=== PATIENT | female | born 1985 | race African-American/Black ===

== ENCOUNTER 2016-12-11 16:16 | Inpatient (IN) ==
[2016-12-11] MEDS ORDERED: ONDANSETRON 4 MG/2 ML INJECTION IV ONE (17:47)
[2016-12-11] MEDS: NS 1,000 ML IV SCH ×2 (18:10→19:36)
[2016-12-11] MEDS: FentaNYL 100 MCG/2 ML INJECTION IVP PRN ×2 (18:11→20:57)
[2016-12-11] MEDS: PANTOPRAZOLE 40 MG INJECTION IVP SCH ×2 (18:28→20:59)
[2016-12-11] MEDS: HYOSCYAMINE 0.125 MG/ML PO SCH ×2 (18:29→22:53)
[2016-12-11] MEDS ORDERED: POTASSIUM CHLORIDE INJ 20 MEQ in NS 1,000 ML IV SCH (20:00)
[2016-12-11] MEDS: NS with KCL 20 mEq 1,000 ML IV SCH (20:55)
[2016-12-12] MEDS: FentaNYL 100 MCG/2 ML INJECTION IVP PRN ×8 (01:25→23:47)
[2016-12-12] MEDS: ONDANSETRON 4 MG/2 ML INJECTION IVP PRN ×2 (01:33→13:30)
[2016-12-12] MEDS: NS with KCL 20 mEq 1,000 ML IV SCH ×3 (04:57→22:15)
--- NOTE | 2016-12-12 08:27 | XRay Report ---
Indication: abd pain PROCEDURE: PA view of the chest with supine and upright AP views of the abdomen Encounter: Initial Comparison: None FINDINGS: The lungs are clear. There is no abnormal airspace opacity, pleural effusion or pneumothorax identified. The heart size, pulmonary vasculature and mediastinum are within normal limits. There is no free air on the upright view. The bowel gas pattern is nonobstructive and nonspecific. A few nondifferential air-fluid levels in the small bowel. Gas is seen in nondilated small and large bowel to the level of the sigmoid. Moderate stool is seen throughout the colon. The bony structures are grossly unremarkable. Surgical clips in the left abdomen. IMPRESSION: 1. No acute cardiopulmonary abnormality. 2. No evidence of acute obstruction or free air. Possible gastroenteritis. There is a preliminary report by [facility]. .
[2016-12-12] MEDS: PANTOPRAZOLE 40 MG INJECTION IVP SCH ×2 (08:59→20:37)
[2016-12-12] MEDS: HYOSCYAMINE 0.125 MG/ML PO SCH ×4 (09:03→20:44)
[2016-12-12 11:48] VITALS: BMI 35.3
[2016-12-12] MEDS: LEVOFLOXACIN PB 500 MG/100 ML BAG IV SCH (12:00)
[2016-12-12] MEDS ORDERED: NS IV ONE (13:19)
[2016-12-12] MEDS ORDERED: IRON DEXTRAN IV ONE (13:19)
--- NOTE | 2016-12-12 14:20 | Pharmacy Consult ---
Pharmacy Consult-[facility] - Laboratory Information IV IRON CONSULT: Dx: Iron Deficiency Anemia: Will give TDI (Total Dose Infusion) over 4 hours. Actual body weight = 84 kg Hgb Level = 8.3 g/dL Calculated Lean Dosing Weight = 50 kg Total dose needed: 1,400 mg (28 mL) Will give test dose of 25mg IV push over 30 seconds. Watch VS q 15 minutes x 1 hr. (watching for anaphylaxis, respiratory distress, hives.) If no reaction will give full dose in NS 500ml TRA 125ml/hr. Watch VS q 1 hr during infusion. Thank you for the Iron Dextran Consult, Saroj Adorno, Pharmacist.
[2016-12-12] MEDS ORDERED: IRON DEXTRAN COMPLEX 100mg/2ml INJECTION IV ONE (14:30)
[2016-12-12] MEDS ORDERED: IRON DEXTRAN 1,400 MG in NS 500ml 500 ML IV ONE (15:30)
--- NOTE | 2016-12-12 19:25 | Internal Med Progress Note ---
Internal Medicine Subjective History and physical was sent over from the office upon admission and is on the paper chart. Patient seen and examined. Family at the bedside. Questions answered. I did discuss her case with her nurse earlier today including the results of the stool PCR which demonstrated two different pathogens. She tested positive for cryptosporidia and Escherichia coli. She also had a gram-negative sherry bacteriuria suspected to be Escherichia coli in her urine. Anamaria continues to have nausea and vomiting today as well as significant abdominal cramping. Her urine output is still low. I did give her iron dextran and today and is infusing now. After initial fluid bolus her hemoglobin has dropped to 8.3. Exam Vital Signs: Temperature 96.8 F 12/12/16 18:05 Pulse Rate 46 L 12/12/16 18:05 Respiratory Rate 18 12/12/16 18:05 Blood Pressure 142/81 H 12/12/16 18:05 Pulse Oximetry 100 12/12/16 18:05 Oxygen Delivery Method Room Air Telemetry Rhythm: Sinus Bradycardia Height/Weight/BMI: Height 5 ft 1 in Weight 84.822 kg Body Mass Index 35.3 - Constitutional Present: mild distress, cooperative Comments: She appears quite fatigued - Routine HEENT Exam Head: Present: normocephalic, atraumatic Eye: Present: EOMI, PERRL. Absent: conjunctival icterus, scleral injection, conjunctivae pink ENT: Present: mucous membranes moist, oropharynx clear, nares patent - Routine Neck Exam Present: supple. Absent: carotid bruit, lymphadenopathy, thyromegaly, tenderness - Routine Chest/Breast/Axilla Exam Chest wall: Absent: tenderness Breast: Absent: tenderness Axillae: Absent: lymphadenopathy - Routine Respiratory Exam Present: CTA bilaterally. Absent: accessory muscle use, dyspnea, rales, respiratory distress, rhonchi, stridor, wheezes - Routine Cardiovascular Exam Present: murmur (2/6 systolic), bradycardia. Absent: RRR, S3, S4 - Routine Abdominal Exam Present: soft, tenderness, guarding. Absent: distended, rebound, firm, rigid Comments: Hyperactive bowel sounds - Routine Extremities Exam Present: pulses intact, pallor. Absent: cyanosis, clubbing, edema, normal capillary refill Comments: Her skin is quite pale - Routine Skin Exam Present: intact, dry. Absent: cyanosis, erythema, mottling, petechiae, urticaria, lesions, jaundice, rash Comments: Pale - Routine Neurological Exam Present: alert, oriented X3, CN II-XII intact, normal reflexes, moving all extremities. Absent: altered mental status - Routine Psychiatric Exam Present: normal affect, cooperative, good insight, good judgment Internal Medicine Results - Labs CBC & Chem 7: 12/12/16 11:59 12/12/16 11:59 Labs: Short CBC 12/12/16 Range/Units 11:59 WBC 6.4 (4.5-11.0) T/MM3 Hgb 8.3 L (12-16) GM/DL Hct 28.7 L (36-46) % Plt Count 218 (130-400) T/MM3 BMP 12/12/16 11:59 Sodium 144 Potassium 3.7 Chloride 113 H Carbon Dioxide 23 BUN 7.0 Creatinine 0.8 D Glucose 74 Calcium 8.2 L Liver Function 12/12/16 Range/Units 11:59 Albumin 3.5 (3.5-5.0) G/DL Urine 12/11/16 Range/Units 19:33 Urine Color Yellow (YELLOW) Urine Clarity Sl cloudy Urine pH 5.5 (5.0-8.0) Ur Specific [place] >=1.030 H (1.015-1.025) Urine Protein Trace A (NEGATIVE) Urine Glucose (UA) Negative (NEGATIVE) Progress Note-A&P (1) Bacterial gastroenteritis Status: Acute Assessment and plan: Escherichia coli Current Visit: Yes (2) Inflammation of small intestine due to parasitic infection Status: Acute Assessment and plan: Cryptosporidium Current Visit: Yes (3) Nausea vomiting and diarrhea Status: Acute Current Visit: Yes (4) Dehydration Status: Acute Assessment and plan: IV fluids Current Visit: Yes (5) Iron deficiency anemia Status: Acute Assessment and plan: INFeD given Current Visit: Yes (6) Heart murmur Status: Acute Assessment and plan: Probably related to anemia Current Visit: Yes (7) UTI (urinary tract infection) Status: Acute Current Visit: Yes - Time Spent With Patient Total time spent is greater than 50% in coordination of care (as documented) at patient's floor/unit and/or counseling patient: 25 - 35 minutes Sepsis Assessment - Evaluation Sepsis screening result: No Definite Risk Possible source: GI tract/intra-abdominal, genitourinary Severe Sepsis: urine output <0.5 mL/kg/hr [id number] Hospital Course Summary Disclaimer: The visit summary below is not to be considered part of the above Progress Note. Hospital Course: 12/12/16 19:35 Patient has Entero aggregative Escherichia coli and cryptosporidium gastroenteritis causing nausea vomiting and diarrhea resulting in severe dehydration. Additionally, she has significant iron deficiency anemia with a hemoglobin of 8. I have started her on IV fluid hydration, Levaquin, and would consider antiparasitic therapy. I will start clear liquid diet in the morning and see if she is stable for discharge home. Upon discharge, she can receive Levaquin through our office cheaper than she can any other pharmacy. So I would director there.
[2016-12-12] MEDS: SALINE FLUSH 10ml SYRINGE IV PRN (23:00)
[2016-12-13] MEDS: FentaNYL 100 MCG/2 ML INJECTION IVP PRN ×5 (02:08→14:00)
[2016-12-13] MEDS: SALINE FLUSH 10ml SYRINGE IV PRN (04:16)
[2016-12-13] MEDS: NS with KCL 20 mEq 1,000 ML IV SCH ×5 (06:32→23:48)
[2016-12-13] MEDS: HYOSCYAMINE 0.125 MG/ML PO SCH ×4 (08:14→21:19)
[2016-12-13] MEDS: PANTOPRAZOLE 40 MG INJECTION IVP SCH ×2 (08:14→21:22)
[2016-12-13] MEDS: LEVOFLOXACIN PB 500 MG/100 ML BAG IV SCH (08:28)
--- NOTE | 2016-12-13 10:56 | Progress Note ---
Subjective: F/U: Gastroenteritis, N/V/D Coverage for Dr Cam. Doing slightly better today. Less nausea, able to take in some liquid. Did have ab discomfort and significant fecal urgency and diarrhea after oral intake. Feels hungry, but not ready to advance diet due to troubles she had with liquids. Still notes upper ab pain - dull achy sensation. Urinating well. Feels much less weak and washed out since fluids started. Not feeling dizzy or unsteady when up. No f/c. Breathing well. Objective Vital signs: Temperature 96.0 F L 12/13/16 07:35 Pulse Rate 43 L 12/13/16 07:35 Respiratory Rate 16 12/13/16 07:35 Blood Pressure 149/77 H 12/13/16 07:35 Pulse Oximetry 98 12/13/16 07:35 Oxygen Delivery Method Room Air Height/Weight/BMI: Height 1.55 m Weight 82.9 kg Body Mass Index 35.3 - Constitutional Present: well nourished, well developed, obese, cooperative - Routine HEENT Exam Head: Present: normocephalic, atraumatic Eye: Present: EOMI, PERRL. Absent: conjunctival icterus ENT: Present: mucous membranes dry - Routine Respiratory Exam Present: CTA bilaterally. Absent: respiratory distress, rhonchi, wheezes, crackles - Routine Cardiovascular Exam Present: RRR - Routine Abdominal Exam Present: soft, non distended. Absent: normoactive bowel sounds (Decreased ), rebound, guarding - Routine Extremities Exam Present: no edema, pulses intact. Absent: cyanosis, clubbing - Routine Skin Exam Present: intact, dry, warm - Routine Neurological Exam Present: alert, oriented X3, CN II-XII intact, vision grossly intact, hearing grossly intact. Absent: motor deficit - Routine Psychiatric Exam Present: normal affect, normal thought process, cooperative, good insight, good judgment Results - Labs CBC & Chem 7: 12/13/16 04:12 12/13/16 04:12 Microbiology Results: Microbiology 12/11/16 19:33 Urine, Voided (Cc/notcc) Urine Culture - Final Escherichia coli 12/11/16 17:21 Peripheral/Iv Start Blood Culture - Preliminary No Growth After 1 Day 12/11/16 17:21 Peripheral/Iv Start Blood Culture - Preliminary No Growth After 1 Day Assessment and Plan (1) Bacterial gastroenteritis Current visit: Yes Status: Acute (2) Inflammation of small intestine due to parasitic infection Current visit: Yes Status: Acute (3) UTI (urinary tract infection) Current visit: Yes Status: Acute (4) Nausea vomiting and diarrhea Current visit: Yes Status: Acute (5) Dehydration Current visit: Yes Status: Resolved (6) Iron deficiency anemia Current visit: Yes Status: Acute DVT Prophylaxis: SCD's GI Prophylaxis: Protonix Resuscitation Status: Full Code Assessment and Plan: Assessment Bacterial gastroenteritis - Escherichia coli Inflammation of small intestine due to parasitic infection - Cryptosporidium UTI - E coli Nausea, vomiting, and diarrhea Dehydration Iron deficiency anemia - INFeD given 12/12 Heart murmur Obesity - BMI 34.5 Plan Will start nitazoxanide 500mg po BID for treatment of cryptosporidium Advised patient this can help treat pathogen, but stools likely to still be loose for some time. Continue IV Levaquin for Ecoli coverage. Will continue IVF to help with hydration as still having loose stool. Control pain-add [place] 7.5 every 4 hours as needed. Increase diet as patient is able. Monitor lab. Discussed about discharge to home-pt currently improving, but will need to monitor how she does with oral intake. Not ready for discharge to home at this time. Will need to recheck on patient later today. 1919 Rechecked on patient. Doing better. Tolerating liquids without n/v. Not having the fecal urgency. Diet advance to full liquid - will advance as she feels able to (advised to be cautious with oral intake). Overall improving. Recheck lab tomorrow. Sepsis Assessment - Evaluation Sepsis screening result: No Definite Risk Hospital Course Summary Disclaimer: The visit summary below is not to be considered part of the above Progress Note. Hospital Course: Assessment Bacterial gastroenteritis - Escherichia coli Inflammation of small intestine due to parasitic infection - Cryptosporidium UTI - E coli Nausea, vomiting, and diarrhea Dehydration Iron deficiency anemia - INFeD given 12/12 Heart murmur Obesity - BMI 34.5 12/12/16 Patient has Entero aggregative Escherichia coli and cryptosporidium gastroenteritis causing nausea vomiting and diarrhea resulting in severe dehydration. Additionally, she has significant iron deficiency anemia with a hemoglobin of 8. I have started her on IV fluid hydration, Levaquin, and would consider antiparasitic therapy. I will start clear liquid diet in the morning and see if she is stable for discharge home. Upon discharge, she can receive Levaquin through our office cheaper than she can any other pharmacy. So I would director there. 12/13/16 - Covering for Dr Cam Will start nitazoxanide 500mg po BID for treatment of cryptosporidium Advised patient this can help treat pathogen, but stools likely to still be loose for some time. Continue IV Levaquin for Ecoli coverage. Will continue IVF to help with hydration as still having loose stool. Control pain-add [place] 7.5 every 4 hours as needed. Increase diet as patient is able. Monitor lab. Discussed about discharge to home-pt currently improving, but will need to monitor how she does with oral intake. Not ready for discharge to home at this time. Will need to recheck on patient later today.
[2016-12-13] MEDS: NITAZOXANIDE 500 MG PO SCH ×2 (11:06→21:19)
[2016-12-13] MEDS: ONDANSETRON 4 MG/2 ML INJECTION IVP PRN (13:21)
[2016-12-13] MEDS: HYDROCODONE/APAP 7.5 MG/325 MG TABLET PO PRN ×2 (17:06→21:18)
[2016-12-14] MEDS: NS with KCL 20 mEq 1,000 ML IV SCH ×3 (01:30→20:23)
[2016-12-14 08:49] VITALS: RESP 16
[2016-12-14] MEDS: HYOSCYAMINE 0.125 MG/ML PO SCH ×4 (08:55→20:22)
[2016-12-14] MEDS: NITAZOXANIDE 500 MG PO SCH ×2 (09:03→21:33)
[2016-12-14] MEDS: LEVOFLOXACIN PB 500 MG/100 ML BAG IV SCH (09:03)
[2016-12-14] MEDS: PANTOPRAZOLE 40 MG INJECTION IVP SCH ×2 (09:04→20:27)
[2016-12-14] MEDS: HYDROCODONE/APAP 7.5 MG/325 MG TABLET PO PRN ×4 (09:04→23:35)
--- NOTE | 2016-12-14 12:35 | Progress Note ---
Subjective: F/U: Gastroenteritis, N/V/D Coverage for Dr Cam. Rough night - significant ab pain. Reports had [place] that helped minimally, but nurses did not recheck on her when she was in pain. Pain in upper ab, shoots through her back and to left side. Still has nausea, but able to keep liquids in. Only able to eat small bites of food before feels full and uncomfortable to abdomen. Stools much less frequent. Had very little urine output during night- feel some fullness to lower ab. Reports sweats and fever/chills during the night. Breathing stable. Objective Vital signs: Temperature 96.4 F L 12/14/16 08:48 Pulse Rate 51 L 12/14/16 08:48 Respiratory Rate 16 12/14/16 08:48 Blood Pressure 146/95 H 12/14/16 08:48 Pulse Oximetry 99 12/14/16 08:48 Oxygen Delivery Method Room Air Height/Weight/BMI: Height 1.55 m Weight 81.5 kg Body Mass Index 35.3 - Constitutional Present: mild distress, well nourished, well developed, obese, cooperative - Routine HEENT Exam Head: Present: normocephalic, atraumatic Eye: Present: EOMI, PERRL ENT: Present: mucous membranes moist - Routine Respiratory Exam Present: CTA bilaterally. Absent: respiratory distress, rhonchi, wheezes, crackles - Routine Cardiovascular Exam Present: no murmur, bradycardia - Routine Abdominal Exam Present: soft, tenderness (Mild diffuse upper ab tenderness ). Absent: normoactive bowel sounds (decreased ), non distended - Routine Extremities Exam Present: edema (Trace Bilateral LE edema ). Absent: cyanosis, clubbing - Routine Musculoskeletal Exam Musculoskeletal: Present: no clubbing or cyanosis, normal strength - Routine Skin Exam Present: intact, dry, warm - Routine Neurological Exam Present: alert, oriented X3, CN II-XII intact, vision grossly intact, hearing grossly intact. Absent: motor deficit - Routine Psychiatric Exam Present: normal affect, normal thought process, cooperative. Absent: agitated Results - Labs CBC & Chem 7: 12/14/16 04:15 12/14/16 04:15 Microbiology Results: Microbiology 12/11/16 17:21 Peripheral/Iv Start Blood Culture - Preliminary No Growth After 2 Days 12/11/16 17:21 Peripheral/Iv Start Blood Culture - Preliminary No Growth After 2 Days 12/11/16 19:33 Urine, Voided (Cc/notcc) Urine Culture - Final Escherichia coli Assessment and Plan (1) Bacterial gastroenteritis Current visit: Yes Status: Acute (2) Inflammation of small intestine due to parasitic infection Current visit: Yes Status: Acute (3) UTI (urinary tract infection) Current visit: Yes Status: Acute (4) Nausea vomiting and diarrhea Current visit: Yes Status: Acute (5) Dehydration Current visit: Yes Status: Resolved (6) Iron deficiency anemia Current visit: Yes Status: Acute DVT Prophylaxis: SCD's GI Prophylaxis: Protonix Resuscitation Status: Full Code Assessment and Plan: Assessment Bacterial gastroenteritis - Escherichia coli Inflammation of small intestine due to parasitic infection - Cryptosporidium UTI - E coli Nausea, vomiting, and diarrhea Dehydration Iron deficiency anemia - INFeD given 12/12 Heart murmur Obesity - BMI 34.5 Plan Will check lipase due to increased abdominal pain (normal at admission). Continue nitazoxanide for treatment of cryptosporidium and IV Levaquin for Ecoli coverage. As oral drive still decreased with continue IVF. Nursing to check bladder scan to help exclude urinary retention as cause for decreased urine output. Continue pain and nausea control. Sepsis Assessment - Evaluation Sepsis screening result: No Definite Risk Hospital Course Summary Disclaimer: The visit summary below is not to be considered part of the above Progress Note. Hospital Course: Assessment Bacterial gastroenteritis - Escherichia coli Inflammation of small intestine due to parasitic infection - Cryptosporidium UTI - E coli Nausea, vomiting, and diarrhea Dehydration Iron deficiency anemia - INFeD given 12/12 Heart murmur Obesity - BMI 34.5 12/12/16 Patient has Entero aggregative Escherichia coli and cryptosporidium gastroenteritis causing nausea vomiting and diarrhea resulting in severe dehydration. Additionally, she has significant iron deficiency anemia with a hemoglobin of 8. I have started her on IV fluid hydration, Levaquin, and would consider antiparasitic therapy. I will start clear liquid diet in the morning and see if she is stable for discharge home. Upon discharge, she can receive Levaquin through our office cheaper than she can any other pharmacy. So I would direct her there. 12/13/16 - Covering for Dr Cam Will start nitazoxanide 500mg po BID for treatment of cryptosporidium Advised patient this can help treat pathogen, but stools likely to still be loose for some time. Continue IV Levaquin for Ecoli coverage. Will continue IVF to help with hydration as still having loose stool. Control pain-add [place] 7.5 every 4 hours as needed. Increase diet as patient is able. Monitor lab. Discussed about discharge to home-pt currently improving, but will need to monitor how she does with oral intake. Not ready for discharge to home at this time. Will need to recheck on patient later today. 12/14/16 Rough night - increased ab pain/discomfort. Stools slowing. Decreased urine output during night (patient not needing to urinate). Will check lipase due to increased abdominal pain (normal at admission). Continue nitazoxanide for treatment of cryptosporidium and IV Levaquin for Ecoli coverage. As oral drive still decreased with continue IVF. Nursing to check bladder scan to help exclude urinary retention as cause for decreased urine output. Continue pain and nausea control.
[2016-12-14] MEDS: FentaNYL 100 MCG/2 ML INJECTION IVP PRN (21:27)
[2016-12-15 00:06] VITALS: O2SAT 100
[2016-12-15] MEDS: HYDROCODONE/APAP 7.5 MG/325 MG TABLET PO PRN ×2 (06:19→11:12)
[2016-12-15] MEDS: NS with KCL 20 mEq 1,000 ML IV SCH (07:44)
[2016-12-15 08:35] VITALS: BP 137/83; PULSE 58; TEMP 96.7
[2016-12-15] MEDS: FentaNYL 100 MCG/2 ML INJECTION IVP PRN ×2 (08:36→13:41)
[2016-12-15] MEDS: ONDANSETRON 4 MG/2 ML INJECTION IVP PRN (08:37)
[2016-12-15] MEDS: LEVOFLOXACIN PB 500 MG/100 ML BAG IV SCH (09:43)
[2016-12-15] MEDS: HYOSCYAMINE 0.125 MG/ML PO SCH ×2 (09:43→13:14)
[2016-12-15] MEDS: PANTOPRAZOLE 40 MG INJECTION IVP SCH (09:44)
[2016-12-15] MEDS: NITAZOXANIDE 500 MG PO SCH (09:45)
--- NOTE | 2016-12-15 11:30 | Progress Note ---
Subjective: F/U: Gastroenteritis, N/V/D Coverage for Dr Cam. Doing better today. Slept better. Still has ab pain and nausea, but keeping foods and liquids in well. No further episodes of diarrhea-not passing stool ( is passing flatus). Breathing well. Urinating well. Ambulating more. No f/c. Objective Vital signs: Temperature 96.7 F L 12/15/16 08:33 Pulse Rate 58 L 12/15/16 08:33 Respiratory Rate 16 12/15/16 08:33 Blood Pressure 137/83 12/15/16 08:33 Pulse Oximetry 100 12/15/16 08:33 Oxygen Delivery Method Room Air Height/Weight/BMI: Height 1.55 m Weight 82 kg Body Mass Index 35.3 - Constitutional Present: no acute distress, well nourished, well developed, obese, cooperative - Routine HEENT Exam Head: Present: normocephalic, atraumatic Eye: Present: EOMI, PERRL ENT: Present: mucous membranes moist - Routine Respiratory Exam Present: CTA bilaterally. Absent: respiratory distress, wheezes, crackles - Routine Cardiovascular Exam Present: no murmur, bradycardia - Routine Abdominal Exam Present: soft, normoactive bowel sounds, non distended, non tender. Absent: guarding - Routine Extremities Exam Present: no edema, pulses intact. Absent: cyanosis, clubbing - Routine Musculoskeletal Exam Musculoskeletal: Present: no clubbing or cyanosis, normal strength - Routine Skin Exam Present: intact, dry, warm - Routine Neurological Exam Present: alert, oriented X3, CN II-XII intact, vision grossly intact, hearing grossly intact. Absent: motor deficit - Routine Psychiatric Exam Present: normal affect, normal thought process, cooperative. Absent: anxious, agitated Results - Labs CBC & Chem 7: 12/15/16 04:28 12/15/16 04:28 Microbiology Results: Microbiology 12/11/16 17:21 Peripheral/Iv Start Blood Culture - Preliminary No Growth After 3 Days 12/11/16 17:21 Peripheral/Iv Start Blood Culture - Preliminary No Growth After 3 Days 12/11/16 19:33 Urine, Voided (Cc/notcc) Urine Culture - Final Escherichia coli Assessment and Plan (1) Bacterial gastroenteritis Current visit: Yes Status: Acute (2) Inflammation of small intestine due to parasitic infection Current visit: Yes Status: Acute (3) UTI (urinary tract infection) Current visit: Yes Status: Acute (4) Nausea vomiting and diarrhea Current visit: Yes Status: Acute (5) Dehydration Current visit: Yes Status: Resolved (6) Iron deficiency anemia Current visit: Yes Status: Acute DVT Prophylaxis: SCD's GI Prophylaxis: Protonix Resuscitation Status: Full Code Assessment and Plan: Assessment Bacterial gastroenteritis - Escherichia coli Inflammation of small intestine due to parasitic infection - Cryptosporidium UTI - E coli Nausea, vomiting, and diarrhea Dehydration Iron deficiency anemia - INFeD given 12/12 Heart murmur Obesity - BMI 34.5 Plan Patient clinically improve. Tolerating oral intake. Diarrhea resolved. Will discharge to home. Continue levofloxacin for 3 more days. Needs one more dose of nitazoxanide to complete course. [place] and Zofran as needed for pain/nausea. Encourage increasing oral intake as able; plenty of fluids. Will have patient follow up with Dr Cam mid week for evaluation. Off work until evaluated by Dr Cam - he can determine when patient may return to work. See orders for details. Times spent with patient care and discharge greater than 30 minutes. - Time spent with patient discharge greater than 30 minutes Sepsis Assessment - Evaluation Sepsis screening result: No Definite Risk Hospital Course Summary Disclaimer: The visit summary below is not to be considered part of the above Progress Note. Hospital Course: Assessment Bacterial gastroenteritis - Escherichia coli Inflammation of small intestine due to parasitic infection - Cryptosporidium UTI - E coli Nausea, vomiting, and diarrhea Dehydration Iron deficiency anemia - INFeD given 12/12 Heart murmur Obesity - BMI 34.5 12/12/16 Patient has Entero aggregative Escherichia coli and cryptosporidium gastroenteritis causing nausea vomiting and diarrhea resulting in severe dehydration. Additionally, she has significant iron deficiency anemia with a hemoglobin of 8. I have started her on IV fluid hydration, Levaquin, and would consider antiparasitic therapy. I will start clear liquid diet in the morning and see if she is stable for discharge home. Upon discharge, she can receive Levaquin through our office cheaper than she can any other pharmacy. So I would direct her there. 12/13/16 - Covering for Dr Cam Will start nitazoxanide 500mg po BID for treatment of cryptosporidium Advised patient this can help treat pathogen, but stools likely to still be loose for some time. Continue IV Levaquin for Ecoli coverage. Will continue IVF to help with hydration as still having loose stool. Control pain-add [place] 7.5 every 4 hours as needed. Increase diet as patient is able. Monitor lab. Discussed about discharge to home-pt currently improving, but will need to monitor how she does with oral intake. Not ready for discharge to home at this time. Will need to recheck on patient later today. 12/14/16 - Covering for Dr Cam Rough night - increased ab pain/discomfort. Stools slowing. Decreased urine output during night (patient not needing to urinate). Will check lipase due to increased abdominal pain (normal at admission). Continue nitazoxanide for treatment of cryptosporidium and IV Levaquin for Ecoli coverage. As oral drive still decreased with continue IVF. Nursing to check bladder scan to help exclude urinary retention as cause for decreased urine output. Continue pain and nausea control. 12/15/16 - Covering for Dr Cam Patient clinically improved. Tolerating oral intake. Diarrhea resolved. Lab stable. No temp elevations. Will discharge to home. Continue levofloxacin for 3 more days. Needs one more dose of nitazoxanide to complete course. [place] and Zofran as needed for pain/nausea. Encourage increasing oral intake as able; plenty of fluids. Will have patient follow up with Dr Cam mid week for evaluation. Off work until evaluated by Dr Cam - he can determine when patient may return to work. See orders for details.
--- NOTE | 2016-12-15 11:41 | Discharge Summary ---
Discharge Information Date of admission: 12/11/16 16:37 Anticipated date of discharge: 12/15/16 Attending Physician: Quoc Cam DO Consults: Dietary Consult: Admitted with nausea/vomiting - Discharge Diagnosis Discharge Diagnosis: Bacterial gastroenteritis - Escherichia coli Inflammation of small intestine due to parasitic infection - Cryptosporidium Associated conditions and complications UTI - E coli Nausea, vomiting, and diarrhea Dehydration Hypernatremia (POA) - Resolved Hypokalemia (POA) - Resolved Iron deficiency anemia - INFeD given 12/12 Heart murmur Obesity - BMI 34.5 - Procedures Procedures: IV IRON CONSULT: Dx: Iron Deficiency Anemia: Will give TDI (Total Dose Infusion) over 4 hours. Actual body weight = 84 kg Hgb Level = 8.3 g/dL Calculated Lean Dosing Weight = 50 kg Total dose needed: 1,400 mg (28 mL) Will give test dose of 25mg IV push over 30 seconds. Watch VS q 15 minutes x 1 hr. (watching for anaphylaxis, respiratory distress, hives.) If no reaction will give full dose in NS 500ml TRA 125ml/hr. Watch VS q 1 hr during infusion. Thank you for the Iron Dextran Consult, Saroj Adorno, Pharmacist. - Laboratory Labs: Admit Lab 12/11/16 06:45 Stool Cryptosporidium PCR Detected A* Stool EAEC (PCR) Detected A Admit Lab 12/11/16 17:21 WBC 7.9 Hgb 9.0 L Hct 30.6 L MCV 71.5 L MCH 21.0 L MCHC 29.4 L Plt Count 257 Neutrophils % (Manual) 71.0 H Band Neutrophils % 2.0 Admit Lab 12/11/16 17:21 Sodium 149 H Potassium 3.4 L Chloride 113 H Carbon Dioxide 26 Anion Gap 10 BUN 7.0 Creatinine 0.6 L GFR Calculation 118 Glucose 82 Calculated Osmolality 283 H Total Bilirubin 0.30 AST 15 ALT 31 Lipase 77 12/15/16 04:28 12/15/16 04:28 - Microbiology Microbiology 12/11/16 17:21 Peripheral/Iv Start Blood Culture - Preliminary No Growth After 3 Days 12/11/16 17:21 Peripheral/Iv Start Blood Culture - Preliminary No Growth After 3 Days 12/11/16 19:33 Urine, Voided (Cc/notcc) Urine Culture - Final Escherichia coli History of Present Illness HPI: Patient presents to clinic due to N/V/D and abdominal pain for the last 10 days. It is described as cramping abdominal pain. She had emesis while in the office. This began 10 days ago. Severity is 11/28. She sloane not been able to keep fluids down. She was recently seen and released from [facility]. Her potassium was critically low at that time. They gave her oral potassium which she threw up. For complete details of the H&P refer to that document. Objective Vital signs: Temperature 96.7 F L 12/15/16 08:33 Pulse Rate 58 L 12/15/16 08:33 Respiratory Rate 16 12/15/16 08:33 Blood Pressure 137/83 12/15/16 08:33 Pulse Oximetry 100 12/15/16 08:33 Oxygen Delivery Method Room Air Height/Weight/BMI: Height 1.55 m Weight 82 kg Body Mass Index 35.3 Hospital Course This is a general summary of the patient's hospital course. For more details refer to the complete medical record. Hospital course: Assessment Bacterial gastroenteritis - Escherichia coli Inflammation of small intestine due to parasitic infection - Cryptosporidium UTI - E coli Nausea, vomiting, and diarrhea Dehydration Iron deficiency anemia - INFeD given 12/12 Heart murmur Obesity - BMI 34.5 12/12/16 Patient has Entero aggregative Escherichia coli and cryptosporidium gastroenteritis causing nausea vomiting and diarrhea resulting in severe dehydration. Additionally, she has significant iron deficiency anemia with a hemoglobin of 8. I have started her on IV fluid hydration, Levaquin, and would consider antiparasitic therapy. I will start clear liquid diet in the morning and see if she is stable for discharge home. Upon discharge, she can receive Levaquin through our office cheaper than she can any other pharmacy. So I would direct her there. 12/13/16 - Covering for Dr Cam Will start nitazoxanide 500mg po BID for treatment of cryptosporidium Advised patient this can help treat pathogen, but stools likely to still be loose for some time. Continue IV Levaquin for Ecoli coverage. Will continue IVF to help with hydration as still having loose stool. Control pain-add [place] 7.5 every 4 hours as needed. Increase diet as patient is able. Monitor lab. Discussed about discharge to home-pt currently improving, but will need to monitor how she does with oral intake. Not ready for discharge to home at this time. Will need to recheck on patient later today. 12/14/16 - Covering for Dr Cam Rough night - increased ab pain/discomfort. Stools slowing. Decreased urine output during night (patient not needing to urinate). Will check lipase due to increased abdominal pain (normal at admission). Continue nitazoxanide for treatment of cryptosporidium and IV Levaquin for Ecoli coverage. As oral drive still decreased with continue IVF. Nursing to check bladder scan to help exclude urinary retention as cause for decreased urine output. Continue pain and nausea control. 12/15/16 - Covering for Dr Cam Patient clinically improved. Tolerating oral intake. Diarrhea resolved. Lab stable. No temp elevations. Will discharge to home. Continue levofloxacin for 3 more days. Needs one more dose of nitazoxanide to complete course. [place] and Zofran as needed for pain/nausea. Encourage increasing oral intake as able; plenty of fluids. Will have patient follow up with Dr Cam mid week for evaluation. Off work until evaluated by Dr Cam - he can determine when patient may return to work. See orders for details. Time spent with patient: discharge greater than 30 minutes DVT Prophylaxis: SCD's GI Prophylaxis: Protonix Discharge Plan - Med Rec/Dispo Referrals/Follow Up: Quoc Cam DO [Physician] - (F/U Friday of this week for hospital follow up and reevaluation. Return to work will be determined at that time. ) [place] Instructions: Acute Nausea and Vomiting (GEN), Acute Abdominal Pain (GEN ) Prescriptions: New Levofloxacin [Levaquin] 500 mg PO DAILY #3 tab Nitazoxanide [Alinia] 500 mg PO BID #1 tab Ondansetron Tab [Zofran Po] 4 mg PO Q6HR PRN #20 tab PRN Reason: Nausea Hydrocodone/APAP 7.5/325 [[place] 7.5/325] 1 tab PO Q4H PRN #30 tab PRN Reason: Pain Discharge Instructions/Outpatient Orders: Final Provider Discharge Instructions Location: Determined By Patient - Disposition 01 Discharged Home, Self-Care - Attestation Attestation Narrative: 12/15/16 11:56 I have independently interviewed and examined patient prior to discharge. See my progress note from today. Medically stable for discharge to home.
--- NOTE | 2016-12-15 13:00 | Work/School Release ---
Work/School Release - Date Date: 12/15/16 - Work Release Excused for:: Anamaria Matta was hospitalized at [facility] from 12/11/2016 until 12/15. She will be following up with Dr Cam (patient's PCP) mid week of December 16 for reassessment. She will need to be off work until released by Dr Desouza - potentially another 3-7 days.
[2016-12-15] MEDS: SALINE FLUSH 10ml SYRINGE IV PRN (13:41)
== END 2016-12-15 14:01 | disposition home or self-care (01) | DRG 372 ==
LOC: MED → OBSVTOIN 16:37 → INTOOBSV 16:37
PROVIDERS: ADMIT Internal Medicine; ATTEND Internal Medicine